=== PATIENT | male | born 1995 | race Caucasian/White ===

== ENCOUNTER 2018-06-29 03:04 | Emergency (ER) | payer SELFPAY ==
[~2018-06-29] VITALS: Ht 177.8 cm; Wt 64.0 kg
[2018-06-29] MEDS ORDERED: LIDOCAINE 1%-EPI 1:100K, 30ML ONE (04:06)
[2018-06-29 07:50] VITALS: BP 107/68
== END 2018-06-29 08:22 | disposition home or self-care (01) ==
LOC: ED 08:04
DX: F10.120 Alcohol abuse with intoxication, uncomplicated (principal); Z72.9 Problem related to lifestyle, unspecified
CPT/HCPCS: 36415; 80307; 99283